=== PATIENT | female | born 1955 | race Caucasian/White ===

== ENCOUNTER 2021-08-27 11:05 | Inpatient (IN) ==
[2021-08-27] MEDS ORDERED: CLORAZEPATE 3.75 MG TABLET PO PRN (11:06)
[2021-08-27] MEDS ORDERED: GLUCAGON 1 MG VIAL IM PRN ×2 (11:06)
[2021-08-27] MEDS ORDERED: SODIUM CHLORIDE 0.9% 1,000 ML IV SCH ×2 (11:30→15:30)
[2021-08-27] MEDS ORDERED: MORPHINE 2 MG/1 ML SYRINGE IV PRN (13:06)
[2021-08-27] MEDS ORDERED: NITROGLYCERIN SL 0.4 MG TABLET SL PRN (13:06)
[2021-08-27 14:21] LABS: Basophils % 0.4 % (0.0-0.8); Eosinophils # 0.2 10*3/uL (0.0-0.87); Eosinophils % 2.1 % (0.00-10.9); Hematocrit 39.3 VOL% (35.7-47.0); Hemoglobin 12.5 GM/DL (12.0-16.0); Immature Granulocytes % 0.5 %; Immature Granulocytes Absolute 0.04 #; Lymphocytes # 1.9 10*3/uL (1.4-4.0); Lymphocytes % 24.8 % (21.3-54.2); Mean Corpuscular HGB Conc 31.8 GM/DL (32-36); Mean Corpuscular Volume 87.3 FL (87-102); Monocytes % 6.6 % (1.7-12.7); Neutrophils % 65.6 % (38.7-73.9); Platelet Count 277 T/CUMM (130-400); Red Cell Distribution Width 13.2 % (9.3-17.3); White Blood Count 7.5 T/CUMM (4-12)
[2021-08-27 14:42] LABS: Alanine Aminotransferase 17 U/L (13-56); Albumin 3.3 G/DL (3.4-5.0); Alkaline Phosphatase 91 U/L (45-117); Aspartate Amino Transferase 12 U/L (0-37); Bilirubin,Total < 0.39 MG/DL (0.20-1.00); Blood Urea Nitrogen 10 MG/DL (7-18); Calcium 9.1 MG/DL (8.5-10.1); Carbon Dioxide 28 MMOL/L (21-32); Estimated Glom Filtration Rate 54 ML/MIN; Glucose 350 MG/DL (74-106); Osmolality,Calculated 282.1 MOS/KG (273-304); Potassium 4.2 MMOL/L (3.5-5.1); Sodium 135 MMOL/L (136-145); Total Protein 7.1 G/DL (6.4-8.2)
[2021-08-27] MEDS ORDERED: DEXTROSE 50% 25 GM/50 ML SYRINGE IV PRN ×2 (14:43→14:49)
[2021-08-27] MEDS: INSULIN REGULAR 100 UNIT/ML SUBCUT SCH ×3 (14:49→20:49)
[2021-08-27] MEDS: CHLORHEXIDINE 4% SOLN 118 ML BOTTLE TOP SCH ×2 (15:22→20:49)
[2021-08-27 17:32] LABS: ABG Base Excess -1.4 MMOL/L (-2.5-2.5); ABG Oxygen Saturation 95.5 % (95-100); ABG PH 7.364 (7.35-7.45); ABG PO2 83.2 MM HG (80-95); ABG TCO2 25.3 MMOL/L (23-27); Allen Test Positive
[2021-08-27] MEDS: CHLORHEXIDINE 0.12% ORAL RINSE 60 ML BOTTLE SWISH/SPIT SCH (20:48)
[2021-08-28] MEDS ORDERED: PAPAVERINE 60 MG/2 ML VIAL ONE (04:16)
[2021-08-28] MEDS ORDERED: VANCOMYCIN 500 MG VIAL ONE (04:17)
[2021-08-28] MEDS ORDERED: VANCOMYCIN 1,000 MG VIAL ONE (04:17)
[2021-08-28] MEDS ORDERED: CEFUROXIME INJ 1,500 MG in SODIUM CHLORIDE 0.9% 100 ML IV ONE (05:00)
[2021-08-28] MEDS ORDERED: NITROGLYCERIN DRIP 50 MG/250 ML BOTTLE IV ONE (05:03)
[2021-08-28] MEDS ORDERED: SODIUM CHLORIDE 0.9% 500 ML IV ONE (05:03)
[2021-08-28] MEDS ORDERED: AMINOCAPROIC ACID 5,000 MG/20 ML VIAL ONE (05:03)
[2021-08-28] MEDS ORDERED: LACTATED RINGERS 1,000 ML IV ONE (05:03)
[2021-08-28] MEDS ORDERED: ETOMIDATE 40 MG/20 ML VIAL IV ONE (05:03)
[2021-08-28] MEDS ORDERED: VECURONIUM 10 MG VIAL IV ONE (05:03)
[2021-08-28] MEDS ORDERED: ePHEDrine 50 MG/ML VIAL ONE (05:03)
[2021-08-28] MEDS ORDERED: LIDOCAINE 2% 5 ML VIAL ONE ×2 (05:03→10:14)
[2021-08-28] MEDS ORDERED: SEVOFLURANE 1 UNIT/15 MINUTE INH ONE (05:03)
[2021-08-28] MEDS ORDERED: SODIUM CHLORIDE 0.9% 100 ML IV ONE ×3 (05:03→09:07)
[2021-08-28] MEDS ORDERED: SODIUM CHLORIDE 0.9% 1,000 ML IV ONE (05:03)
[2021-08-28] MEDS ORDERED: PHENYLEPHRINE 10 MG/1 ML VIAL IV ONE (05:04)
[2021-08-28] MEDS ORDERED: SUFentanil 250 MCG/5 ML AMP ONE ×4 (05:04→08:58)
[2021-08-28] MEDS ORDERED: MIDAZOLAM 10 MG/2 ML VIAL ONE ×4 (05:04)
[2021-08-28] MEDS ORDERED: CALCIUM CHLORIDE 1,000 MG/10 ML VIAL IV ONE (05:13)
[2021-08-28] MEDS ORDERED: ONDANSETRON 4 MG/2 ML VIAL IV ONE (05:30)
[2021-08-28] MEDS ORDERED: FAMOTIDINE 20 MG TABLET PO ONE (05:30)
[2021-08-28] MEDS ORDERED: DIAZEPAM 5 MG TABLET PO ONE (05:30)
[2021-08-28] MEDS ORDERED: MINERAL OIL/PETROLATUM OPH OINT 3.5 GM TUBE ONE ×2 (05:49→07:20)
[2021-08-28] MEDS ORDERED: SODIUM CHLORIDE 0.9% 1,000 ML IV SCH (06:00)
[2021-08-28] MEDS ORDERED: SODIUM BICARBONATE 50 MEQ/50 ML VIAL IV ONE ×2 (07:25→10:15)
[2021-08-28] MEDS ORDERED: CALCIUM CHLORIDE 1,000 MG/10 ML SYRINGE IV ONE (07:25)
[2021-08-28] MEDS ORDERED: NITROPRUSSIDE 50 MG/2 ML VIAL ONE (07:25)
[2021-08-28] MEDS ORDERED: POTASSIUM CHLORIDE RIDER 20 MEQ/100 ML PREMIX IV ONE (07:25)
[2021-08-28] MEDS ORDERED: PHENYLEPHRINE DRIP 40 MG/250 ML PREMIX IV ONE (07:25)
[2021-08-28 07:45] LABS: ABG Base Excess 2.6 MMOL/L (-2.5-2.5); ABG HCO3 26.8 MMOL/L (20-26); ABG Oxygen Saturation 99.8 % (95-100); ABG PCO2 37.5 MM HG (35-48); ABG PH 7.456 (7.35-7.45); ABG TCO2 23.7 MMOL/L (23-27); Glucose Heart Surgery 241 MG/DL (74-106); Hematocrit Heart Surgery 33.1 PERCENT (37-47); Hemoglobin Heart Surgery 10.7 G/DL (12.0-16.0); PCO2 Patient Temp Arterial 37.5 MMHG; PH Patient Temp Arterial 7.456; Patient Temperature 37 CELCIUS; Potassium Heart/CVR 4.1 MMOL/L (3.5-5.1); Sodium Heart/CVR 138 MMOL/L (135-145)
[2021-08-28 07:50] LABS: Bilirubin,Urine Negative (Negative); Blood, Urine Negative (Negative); Glucose,Urine (UA) >=500 mg/dL (Negative); Ketones,Urine Negative (Negative); Mucus,Urine Occasional /LPF (Occasional); Nitrite,Urine Negative (Negative); Protein,Urine Negative; RBC,Urine 1 /HPF (0-4); Squamous Epithelial Cell,Urine Occasional /HPF (0-10); Urine Appearance CLEAR (Clear); Urine Color Yellow (Yellow); Urine Urobilinogen < 2.0 EU/DL (0.2-1.0)
[2021-08-28 09:15] LABS: Hematocrit Heart Surgery 21.8 PERCENT (37-47); PCO2 Patient Temp Venous 35.1 MM HG; PH Patient Temp Venous 7.489; PO2 Patient Temp Venous 32.4 MM HG; Potassium Heart/CVR 4.5 MMOL/L (3.5-5.1); VBG Base Excess 3.5 MEQ/L (0-4); VBG HCO3 27.3 MEQ/L (24-28); VBG Oxygen Saturation 76.3 %; VBG PCO2 40.5 MMHG (41-51); VBG PH 7.444; VBG Total CO2 26.3 MMOL/L
[2021-08-28 09:45] LABS: Hematocrit Heart Surgery 25.7 PERCENT (37-47); Hemoglobin Heart Surgery 8.3 G/DL (12.0-16.0); PCO2 Patient Temp Venous 37.9 MM HG; PH Patient Temp Venous 7.507; PO2 Patient Temp Venous 34.3 MM HG; Potassium Heart/CVR 4.4 MMOL/L (3.5-5.1); VBG Base Excess 6.5 MEQ/L (0-4); VBG HCO3 29.9 MEQ/L (24-28); VBG Oxygen Saturation 69.4 %; VBG PCO2 37.9 MMHG (41-51); VBG PH 7.507; VBG PO2 34.3 MMHG (17-40)
[2021-08-28 10:05] LABS: ABG Base Excess 2.5 MMOL/L (-2.5-2.5); ABG HCO3 25.8 MMOL/L (20-26); ABG Oxygen Saturation 98.6 % (95-100); ABG PCO2 34.8 MM HG (35-48); ABG PH 7.488 (7.35-7.45); ABG PO2 258.5 MM HG (80-95); ABG TCO2 26.9 MMOL/L (23-27); Glucose Heart Surgery 349 MG/DL (74-106); Hemoglobin Heart Surgery 9.1 G/DL (12.0-16.0); Ionized Calcium Arterial 1.17 MMOL/L (1.21-1.46); PCO2 Patient Temp Arterial 34.8 MMHG; PH Patient Temp Arterial 7.488; PO2 Patient Temp Arterial 258.5 MM HG; Patient Temperature 37 CELCIUS; Potassium Heart/CVR 3.5 MMOL/L (3.5-5.1); Sodium Heart/CVR 134 MMOL/L (135-145)
[2021-08-28] MEDS ORDERED: methylPREDNISolone SOD SUC 1,000 MG/8 ML VIAL ONE (10:14)
[2021-08-28] MEDS ORDERED: ALBUMIN 25% 25 GM/100 ML VIAL IV ONE (10:14)
[2021-08-28] MEDS ORDERED: MAGNESIUM SULFATE 5 GM/10 ML VIAL IV ONE (10:14)
[2021-08-28] MEDS ORDERED: DEXTROSE 5% KCL 20 MEQ 20 MEQ/1,000 ML BAG IV ONE (10:15)
[2021-08-28] MEDS ORDERED: FUROSEMIDE 20 MG/2 ML VIAL ONE (10:15)
[2021-08-28] MEDS ORDERED: HEPARIN 10,000 UNIT/10 ML VIAL ONE (10:15)
[2021-08-28] MEDS ORDERED: PROTAMINE SULFATE 250 MG/25 ML VIAL IV ONE (10:15)
[2021-08-28] MEDS ORDERED: ONDANSETRON 4 MG/2 ML VIAL IV PRN (10:17)
[2021-08-28] MEDS ORDERED: INSULIN REGULAR 100 UNIT/ML IV ONE (10:17)
[2021-08-28] MEDS ORDERED: NITROPRUSSIDE 100 MG in DEXTROSE 5% 250 ML IV PRN (10:17)
[2021-08-28] MEDS ORDERED: ACETAMINOPHEN 650 MG SUPP RECTAL PRN (10:17)
[2021-08-28] MEDS ORDERED: PHENYLEPHRINE DRIP 40 MG/250 ML PREMIX IV PRN (10:17)
[2021-08-28] MEDS ORDERED: MIDAZOLAM 10 MG/2 ML VIAL IV PRN (10:17)
[2021-08-28] MEDS ORDERED: MAGNESIUM SULF RIDER 4 GM/100 ML PREMIX IV PRN (10:17)
[2021-08-28] MEDS ORDERED: CALCIUM CHLORIDE 1,000 MG/10 ML SYRINGE IV PRN (10:17)
[2021-08-28] MEDS ORDERED: VECURONIUM 10 MG VIAL IV PRN ×2 (10:17)
[2021-08-28] MEDS ORDERED: MIDAZOLAM 2 MG/2 ML VIAL IV PRN (10:17)
[2021-08-28] MEDS ORDERED: CHLORHEXIDINE 4% SOLN 118 ML BOTTLE TOP PRN (10:17)
[2021-08-28] MEDS ORDERED: MORPHINE 10 MG/1 ML VIAL IV PRN (10:17)
[2021-08-28] MEDS ORDERED: MAGNESIUM SULF RIDER 2 GM/50 ML PREMIX IV PRN (10:17)
[2021-08-28] MEDS ORDERED: POTASSIUM CHLORIDE RIDER 10 MEQ/100 ML PREMIX IV PRN (10:17)
[2021-08-28] MEDS ORDERED: INSULIN REGULAR 100 UNIT/ML IV PRN (10:17)
[2021-08-28] MEDS: CHLORHEXIDINE 4% SOLN 118 ML BOTTLE TOP SCH (10:21)
[2021-08-28] MEDS: INSULIN REGULAR 100 UNIT/ML SUBCUT SCH (10:22)
[2021-08-28] MEDS: CHLORHEXIDINE 0.12% ORAL RINSE 60 ML BOTTLE SWISH/SPIT SCH ×2 (10:22→20:54)
[2021-08-28] MEDS ORDERED: INSULIN REGULAR DRIP 100 ML IV SCH (10:30)
[2021-08-28] MEDS ORDERED: SODIUM CHLORIDE 0.45% 1,000 ML IV SCH ×2 (10:30)
[2021-08-28] MEDS ORDERED: NITROGLYCERIN DRIP 50 MG/250 ML BOTTLE IV PRN (10:31)
[2021-08-28] MEDS ORDERED: DEXTROSE 50% 25 GM/50 ML SYRINGE IV PRN ×2 (10:39)
[2021-08-28] MEDS ORDERED: HEPARIN/NACL 0.9% 2 UNITS/ML 1,000 UNIT/500 ML BAG IV ONE (11:03)
[2021-08-28 11:05] LABS: ABG Base Excess 3.3 MMOL/L (-2.5-2.5); ABG HCO3 27.4 MMOL/L (20-26); ABG Oxygen Saturation 99.6 % (95-100); ABG PCO2 39.8 MM HG (35-48); ABG PH 7.447 (7.35-7.45); ABG TCO2 24.7 MMOL/L (23-27); Glucose Heart Surgery 382 MG/DL (74-106); Hematocrit Heart Surgery 32.9 PERCENT (37-47); Hemoglobin Heart Surgery 10.7 G/DL (12.0-16.0); Potassium Heart/CVR 4.7 MMOL/L (3.5-5.1)
[2021-08-28 11:16] LABS: Basophils % 0.2 % (0.0-0.8); Eosinophils # 0.1 10*3/uL (0.0-0.87); Eosinophils % 0.5 % (0.00-10.9); Hematocrit 31.6 VOL% (35.7-47.0); Immature Granulocytes % 1.3 %; Immature Granulocytes Absolute 0.16 #; Lymphocytes # 1.7 10*3/uL (1.4-4.0); Lymphocytes % 13.7 % (21.3-54.2); Mean Corpuscular HGB Conc 33.2 GM/DL (32-36); Mean Corpuscular Volume 84.9 FL (87-102); Mean Platelet Volume 10.5 FL (9.6-12.0); Monocytes % 4.3 % (1.7-12.7); Platelet Count 265 T/CUMM (130-400); Red Blood Count 3.72 MC/CUMM (3.8-5.5); Red Cell Distribution Width 13.2 % (9.3-17.3)
[2021-08-28 11:17] LABS: Hemoglobin 10.5 GM/DL (12.0-16.0); White Blood Count 12.2 T/CUMM (4-12)
[2021-08-28 11:21] LABS: INR 1.1; PT Patient Result 12.1 SECS (10.5-12.0); Partial Thromboplastin Time 26.8 SECS (23.8-32.1)
[2021-08-28 11:37] LABS: CKMB % 7.6 %
[2021-08-28 11:39] LABS: High Sensitive Troponin I* 3002.4 ng/L (0-54)
[2021-08-28 11:51] LABS: Albumin 3.2 G/DL (3.4-5.0); Osmolality,Calculated 295.3 MOS/KG (273-304); Potassium 4.8 MMOL/L (3.5-5.1); Total Protein 6.2 G/DL (6.4-8.2)
[2021-08-28] MEDS: ALBUMIN 5% 12.5 GM/250 ML VIAL IV PRN ×3 (12:06→22:08)
[2021-08-28 12:23] LABS: ABG Base Excess 1.8 MMOL/L (-2.5-2.5); ABG Oxygen Saturation 99.2 % (95-100); ABG PCO2 40.1 MM HG (35-48); ABG PH 7.425 (7.35-7.45); ABG TCO2 23.7 MMOL/L (23-27); Glucose Heart Surgery 421 MG/DL (74-106); Hematocrit Heart Surgery 31.8 PERCENT (37-47); Hemoglobin Heart Surgery 10.3 G/DL (12.0-16.0); Potassium Heart/CVR 3.4 MMOL/L (3.5-5.1)
[2021-08-28] MEDS: POTASSIUM CHLORIDE RIDER 20 MEQ/100 ML PREMIX IV PRN ×5 (12:27→19:40)
[2021-08-28 12:33] LABS: VBG Base Excess 1.9 MEQ/L (0-4); VBG HCO3 25.9 MEQ/L (24-28); VBG Oxygen Saturation 89.6 %; VBG PCO2 38.1 MMHG (41-51); VBG PH 7.45; VBG PO2 56.8 MMHG (17-40); VBG Total CO2 27.1 MMOL/L
[2021-08-28 14:34] LABS: ABG Base Excess 0.9 MMOL/L (-2.5-2.5); ABG HCO3 25.2 MMOL/L (20-26); ABG Oxygen Saturation 98.9 % (95-100); ABG PCO2 41.1 MM HG (35-48); ABG PH 7.404 (7.35-7.45); ABG TCO2 23.7 MMOL/L (23-27); Glucose Heart Surgery 335 MG/DL (74-106); Hematocrit Heart Surgery 27.3 PERCENT (37-47); Hemoglobin Heart Surgery 8.8 G/DL (12.0-16.0); Potassium Heart/CVR 3.3 MMOL/L (3.5-5.1)
[2021-08-28 17:09] LABS: ABG Base Excess -0.6 MMOL/L (-2.5-2.5); ABG Oxygen Saturation 98.5 % (95-100); ABG PCO2 45.9 MM HG (35-48); ABG TCO2 22.6 MMOL/L (23-27); Glucose Heart Surgery 229 MG/DL (74-106); Hematocrit Heart Surgery 36.6 PERCENT (37-47); Hemoglobin Heart Surgery 11.9 G/DL (12.0-16.0); Potassium Heart/CVR 3.9 MMOL/L (3.5-5.1)
[2021-08-28] MEDS: CEFUROXIME INJ 1,500 MG in SODIUM CHLORIDE 0.9% 100 ML IV SCH (17:31)
[2021-08-28] MEDS ORDERED: FUROSEMIDE 40 MG/4 ML VIAL IV PRN (18:43)
[2021-08-28] MEDS: LACTATED RINGERS 250 ML IV PRN ×3 (19:00→22:40)
[2021-08-28 19:20] LABS: ABG Base Excess 0.2 MMOL/L (-2.5-2.5); ABG HCO3 24.6 MMOL/L (20-26); ABG PCO2 47.5 MM HG (35-48); ABG PH 7.351 (7.35-7.45); ABG TCO2 23.5 MMOL/L (23-27); Glucose Heart Surgery 186 MG/DL (74-106); Hematocrit Heart Surgery 36.3 PERCENT (37-47); Hemoglobin Heart Surgery 11.8 G/DL (12.0-16.0); Potassium Heart/CVR 3.7 MMOL/L (3.5-5.1)
[2021-08-28 20:08] LABS: CKMB % 3.7 %; High Sensitive Troponin I* 2211.8 ng/L (0-54)
[2021-08-28 22:18] LABS: ABG Base Excess -0.2 MMOL/L (-2.5-2.5); ABG HCO3 24.2 MMOL/L (20-26); ABG Oxygen Saturation 98.2 % (95-100); ABG PCO2 48.2 MM HG (35-48); ABG PH 7.341 (7.35-7.45); ABG TCO2 23.3 MMOL/L (23-27); Glucose Heart Surgery 152 MG/DL (74-106); Hematocrit Heart Surgery 36.1 PERCENT (37-47); Hemoglobin Heart Surgery 11.7 G/DL (12.0-16.0); Potassium Heart/CVR 4.1 MMOL/L (3.5-5.1)
[2021-08-29 00:12] LABS: ABG Base Excess 0.5 MMOL/L (-2.5-2.5); ABG HCO3 26.7 MMOL/L (20-26); ABG Oxygen Saturation 97.2 % (95-100); ABG PCO2 49.5 MM HG (35-48); ABG PH 7.349 (7.35-7.45); ABG PO2 101.5 MM HG (80-95); ABG TCO2 28.2 MMOL/L (23-27); Glucose Heart Surgery 126 MG/DL (74-106); Hemoglobin Heart Surgery 11.7 G/DL (12.0-16.0); Potassium Heart/CVR 4.1 MMOL/L (3.5-5.1)
[2021-08-29] MEDS: ALBUMIN 5% 12.5 GM/250 ML VIAL IV PRN (00:40)
[2021-08-29] MEDS: POTASSIUM CHLORIDE RIDER 20 MEQ/100 ML PREMIX IV PRN ×2 (01:37→04:11)
[2021-08-29 02:07] LABS: ABG Base Excess 2.1 MMOL/L (-2.5-2.5); ABG HCO3 26.3 MMOL/L (20-26); ABG Oxygen Saturation 98.5 % (95-100); ABG PCO2 44.8 MM HG (35-48); ABG PH 7.395 (7.35-7.45); ABG TCO2 24.4 MMOL/L (23-27); Glucose Heart Surgery 149 MG/DL (74-106); Hematocrit Heart Surgery 36.1 PERCENT (37-47); Hemoglobin Heart Surgery 11.7 G/DL (12.0-16.0); Potassium Heart/CVR 5.1 MMOL/L (3.5-5.1)
[2021-08-29] MEDS: MORPHINE 2 MG/1 ML SYRINGE IV PRN ×2 (02:20→06:20)
[2021-08-29 03:15] LABS: ABG Base Excess 2.5 MMOL/L (-2.5-2.5); ABG HCO3 26.7 MMOL/L (20-26); ABG Oxygen Saturation 98.1 % (95-100); ABG PH 7.356 (7.35-7.45); Glucose Heart Surgery 159 MG/DL (74-106); Hematocrit Heart Surgery 36.2 PERCENT (37-47); Hemoglobin Heart Surgery 11.7 G/DL (12.0-16.0); Potassium Heart/CVR 4.4 MMOL/L (3.5-5.1)
[2021-08-29 03:26] LABS: Basophils % 0.1 % (0.0-0.8); Hematocrit 35.6 VOL% (35.7-47.0); Hemoglobin 11.7 GM/DL (12.0-16.0); Immature Granulocytes % 0.8 %; Immature Granulocytes Absolute 0.12 #; Lymphocytes # 1.1 10*3/uL (1.4-4.0); Lymphocytes % 6.7 % (21.3-54.2); Mean Corpuscular HGB Conc 32.9 GM/DL (32-36); Mean Corpuscular Volume 86.4 FL (87-102); Mean Platelet Volume 10.6 FL (9.6-12.0); Monocytes % 4.2 % (1.7-12.7); Neutrophils % 88.2 % (38.7-73.9); Platelet Count 204 T/CUMM (130-400); Red Blood Count 4.12 MC/CUMM (3.8-5.5); Red Cell Distribution Width 14.1 % (9.3-17.3); White Blood Count 15.9 T/CUMM (4-12)
[2021-08-29 03:45] LABS: Albumin 4.1 G/DL (3.4-5.0); Bilirubin,Direct 0.12 MG/DL (0.0-0.20); Bilirubin,Total 0.4 MG/DL (0.20-1.00); Calcium 8.6 MG/DL (8.5-10.1); Potassium 4.5 MMOL/L (3.5-5.1); Total Protein 6.6 G/DL (6.4-8.2)
[2021-08-29 03:47] LABS: CKMB % 2.6 %; High Sensitive Troponin I* 1747.7 ng/L (0-54)
[2021-08-29 04:07] LABS: ABG Oxygen Saturation 98.1 % (95-100); ABG PH 7.373 (7.35-7.45); ABG PO2 115.6 MM HG (80-95); ABG TCO2 30.6 MMOL/L (23-27); Glucose Heart Surgery 149 MG/DL (74-106); Potassium Heart/CVR 4.3 MMOL/L (3.5-5.1)
[2021-08-29] MEDS: CEFUROXIME INJ 1,500 MG in SODIUM CHLORIDE 0.9% 100 ML IV SCH ×2 (05:48→18:05)
[2021-08-29 06:32] LABS: ABG Base Excess 3.1 MMOL/L (-2.5-2.5); ABG HCO3 28.7 MMOL/L (20-26); ABG Oxygen Saturation 96.7 % (95-100); ABG PCO2 48.2 MM HG (35-48); ABG PH 7.393 (7.35-7.45); ABG PO2 91.8 MM HG (80-95); ABG TCO2 30.2 MMOL/L (23-27); Glucose Heart Surgery 139 MG/DL (74-106); Hemoglobin Heart Surgery 12.1 G/DL (12.0-16.0); Potassium Heart/CVR 4.4 MMOL/L (3.5-5.1)
[2021-08-29] MEDS: ASPIRIN EC 325 MG TABLET PO SCH (08:46)
[2021-08-29] MEDS: CITALOPRAM 20 MG TABLET PO SCH (08:46)
[2021-08-29] MEDS: oxyCODONE/ACETAMINOPHEN 5-325 MG TABLET PO PRN ×3 (08:47→22:08)
[2021-08-29] MEDS: OMEPRAZOLE ODT 20 MG TABLET PO SCH ×2 (08:47→22:05)
[2021-08-29] MEDS: CHLORHEXIDINE 0.12% ORAL RINSE 60 ML BOTTLE SWISH/SPIT SCH ×3 (08:48→22:06)
[2021-08-29] MEDS ORDERED: GLUCAGON 1 MG VIAL IM PRN (08:52)
[2021-08-29] MEDS ORDERED: MAGNESIUM HYDROXIDE SUSP 30 ML UDCUP PO PRN (08:52)
[2021-08-29] MEDS ORDERED: ACETAMINOPHEN 325 MG TABLET PO PRN (08:52)
[2021-08-29] MEDS ORDERED: ONDANSETRON 4 MG/2 ML VIAL IV PRN (08:52)
[2021-08-29] MEDS ORDERED: DEXTROSE 50% 25 GM/50 ML SYRINGE IV PRN (08:52)
[2021-08-29] MEDS ORDERED: MAGNESIUM SULF RIDER 2 GM/50 ML PREMIX IV PRN (08:52)
[2021-08-29] MEDS ORDERED: ALUMINUM/MAGNES/SIMETH MAX STR 30 ML UDCUP PO PRN (08:52)
[2021-08-29] MEDS ORDERED: MAGNESIUM SULF RIDER 4 GM/100 ML PREMIX IV PRN (08:52)
[2021-08-29] MEDS: FERROUS SULFATE 325 MG TABLET PO SCH (08:59)
[2021-08-29] MEDS: SODIUM CHLOR 0.45% KCL 20 MEQ 20 MEQ/1,000 ML BAG IV SCH (09:06)
[2021-08-29 11:35] LABS: High Sensitive Troponin I* 1463.7 ng/L (0-54)
[2021-08-29] MEDS: INSULIN REGULAR 100 UNIT/ML SUBCUT SCH ×2 (12:36→16:25)
[2021-08-29] MEDS: DOCUSATE SODIUM 100 MG CAPSULE PO SCH (12:37)
[2021-08-29] MEDS: ZALEPLON 5 MG CAPSULE PO PRN (22:05)
[2021-08-29] MEDS: GABAPENTIN 600 MG TABLET PO SCH (22:06)
[2021-08-30 04:30] LABS: Basophils % 0.2 % (0.0-0.8); Eosinophils % 0.1 % (0.00-10.9); Hematocrit 35.2 VOL% (35.7-47.0); Hemoglobin 11.1 GM/DL (12.0-16.0); Immature Granulocytes % 0.9 %; Immature Granulocytes Absolute 0.13 #; Lymphocytes # 2.4 10*3/uL (1.4-4.0); Lymphocytes % 16.5 % (21.3-54.2); Mean Corpuscular HGB Conc 31.5 GM/DL (32-36); Mean Corpuscular Volume 89.3 FL (87-102); Mean Platelet Volume 10.2 FL (9.6-12.0); Monocytes % 8.3 % (1.7-12.7); Platelet Count 203 T/CUMM (130-400); Red Blood Count 3.94 MC/CUMM (3.8-5.5); Red Cell Distribution Width 14.2 % (9.3-17.3); White Blood Count 14.3 T/CUMM (4-12)
[2021-08-30] MEDS: oxyCODONE/ACETAMINOPHEN 5-325 MG TABLET PO PRN ×4 (04:37→22:09)
[2021-08-30 04:59] LABS: Alanine Aminotransferase 19 U/L (13-56); Albumin 3.4 G/DL (3.4-5.0); Aspartate Amino Transferase 20 U/L (0-37); Bilirubin,Direct 0.14 MG/DL (0.0-0.20); Bilirubin,Indirect 0.3 MG/DL (0.0-1.0); Bilirubin,Total 0.4 MG/DL (0.20-1.00); Calcium 8.5 MG/DL (8.5-10.1); Osmolality,Calculated 279.7 MOS/KG (273-304); Potassium 4.1 MMOL/L (3.5-5.1); Total Protein 6.1 G/DL (6.4-8.2); Total Protein 6.2 G/DL (6.4-8.2)
[2021-08-30 05:00] LABS: Alkaline Phosphatase 62 U/L (45-117)
[2021-08-30] MEDS: INSULIN REGULAR 100 UNIT/ML SUBCUT SCH ×5 (05:05→22:08)
[2021-08-30] MEDS ORDERED: FUROSEMIDE 40 MG/4 ML VIAL IV ONE (06:00)
[2021-08-30] MEDS: OMEPRAZOLE ODT 20 MG TABLET PO SCH ×2 (09:00→22:10)
[2021-08-30] MEDS: DOCUSATE SODIUM 100 MG CAPSULE PO SCH (09:05)
[2021-08-30] MEDS: CITALOPRAM 20 MG TABLET PO SCH (09:05)
[2021-08-30] MEDS: ASPIRIN EC 325 MG TABLET PO SCH (09:05)
[2021-08-30] MEDS: FERROUS SULFATE 325 MG TABLET PO SCH (09:05)
[2021-08-30] MEDS: GABAPENTIN 600 MG TABLET PO SCH ×3 (09:05→22:09)
[2021-08-30] MEDS: SODIUM CHLOR 0.45% KCL 20 MEQ 20 MEQ/1,000 ML BAG IV SCH (09:22)
[2021-08-30] MEDS: glipiZIDE 5 MG TABLET PO SCH ×2 (10:47→16:19)
[2021-08-30] MEDS: fentaNYL 25 MCG/HR PATCH TRANSDERM SCH (10:47)
[2021-08-30] MEDS: metFORMIN 500 MG TABLET PO SCH ×2 (10:47→16:19)
[2021-08-30] MEDS: CHLORHEXIDINE 0.12% ORAL RINSE 60 ML BOTTLE SWISH/SPIT SCH ×2 (10:48→22:10)
[2021-08-30] MEDS: ZALEPLON 5 MG CAPSULE PO PRN (22:09)
[2021-08-31] MEDS: oxyCODONE/ACETAMINOPHEN 5-325 MG TABLET PO PRN ×4 (03:16→22:15)
[2021-08-31 05:49] LABS: Basophils % 0.2 % (0.0-0.8); Eosinophils # 0.1 10*3/uL (0.0-0.87); Eosinophils % 0.6 % (0.00-10.9); Hemoglobin 11.7 GM/DL (12.0-16.0); Immature Granulocytes Absolute 0.16 #; Lymphocytes # 2.8 10*3/uL (1.4-4.0); Lymphocytes % 18.1 % (21.3-54.2); Mean Corpuscular HGB Conc 31.6 GM/DL (32-36); Mean Corpuscular Volume 88.5 FL (87-102); Mean Platelet Volume 11.1 FL (9.6-12.0); Monocytes % 8.7 % (1.7-12.7); Neutrophils % 71.4 % (38.7-73.9); Platelet Count 252 T/CUMM (130-400); Red Blood Count 4.18 MC/CUMM (3.8-5.5); Red Cell Distribution Width 13.7 % (9.3-17.3); White Blood Count 15.7 T/CUMM (4-12)
[2021-08-31 06:09] LABS: Alanine Aminotransferase 18 U/L (13-56); Albumin 3.2 G/DL (3.4-5.0); Alkaline Phosphatase 82 U/L (45-117); Aspartate Amino Transferase 24 U/L (0-37); Bilirubin,Indirect 0.8 MG/DL (0.0-1.0); Total Protein 6.5 G/DL (6.4-8.2)
[2021-08-31 06:10] LABS: Albumin 3.2 G/DL (3.4-5.0); Bilirubin,Direct 0.13 MG/DL (0.0-0.20); Bilirubin,Total 0.8 MG/DL (0.20-1.00); Calcium 8.5 MG/DL (8.5-10.1); Osmolality,Calculated 280.5 MOS/KG (273-304); Potassium 3.4 MMOL/L (3.5-5.1)
[2021-08-31] MEDS: POTASSIUM CHLORIDE 20 MEQ TABLET PO PRN ×3 (08:28→10:27)
[2021-08-31] MEDS: INSULIN REGULAR 100 UNIT/ML SUBCUT SCH ×4 (08:37→23:06)
[2021-08-31] MEDS: DOCUSATE SODIUM 100 MG CAPSULE PO SCH ×2 (09:34→22:15)
[2021-08-31] MEDS: GABAPENTIN 600 MG TABLET PO SCH ×3 (09:34→22:15)
[2021-08-31] MEDS: CITALOPRAM 20 MG TABLET PO SCH (09:34)
[2021-08-31] MEDS: metFORMIN 500 MG TABLET PO SCH ×2 (09:35→16:56)
[2021-08-31] MEDS: ASPIRIN EC 325 MG TABLET PO SCH (09:35)
[2021-08-31] MEDS: FERROUS SULFATE 325 MG TABLET PO SCH (09:35)
[2021-08-31] MEDS: glipiZIDE 5 MG TABLET PO SCH ×2 (09:35→16:55)
[2021-08-31] MEDS: OMEPRAZOLE ODT 20 MG TABLET PO SCH ×2 (09:36→22:15)
[2021-08-31] MEDS: CHLORHEXIDINE 0.12% ORAL RINSE 60 ML BOTTLE SWISH/SPIT SCH ×2 (09:43→22:14)
[2021-08-31] MEDS: POLYETHYLENE GLYCOL POWDER 17 GM PACK PO SCH (09:43)
[2021-08-31] MEDS: ZALEPLON 5 MG CAPSULE PO PRN (22:15)
[2021-09-01 03:57] LABS: Basophils # 0.1 10*3/uL (0.0-0.2); Basophils % 0.4 % (0.0-0.8); Eosinophils # 0.3 10*3/uL (0.0-0.87); Eosinophils % 2.6 % (0.00-10.9); Hematocrit 34.7 VOL% (35.7-47.0); Immature Granulocytes % 0.7 %; Immature Granulocytes Absolute 0.08 #; Lymphocytes # 2.2 10*3/uL (1.4-4.0); Mean Corpuscular HGB Conc 31.7 GM/DL (32-36); Mean Corpuscular Volume 88.7 FL (87-102); Mean Platelet Volume 10.2 FL (9.6-12.0); Monocytes % 7.2 % (1.7-12.7); Neutrophils % 70.1 % (38.7-73.9); Platelet Count 237 T/CUMM (130-400); Red Blood Count 3.91 MC/CUMM (3.8-5.5); Red Cell Distribution Width 13.7 % (9.3-17.3); White Blood Count 11.8 T/CUMM (4-12)
[2021-09-01 04:12] LABS: Calcium 8.5 MG/DL (8.5-10.1); Osmolality,Calculated 285.4 MOS/KG (273-304); Potassium 4.3 MMOL/L (3.5-5.1)
[2021-09-01] MEDS: glipiZIDE 5 MG TABLET PO SCH ×2 (08:25→16:40)
[2021-09-01] MEDS: metFORMIN 500 MG TABLET PO SCH (08:25)
[2021-09-01] MEDS: GABAPENTIN 600 MG TABLET PO SCH ×3 (08:25→21:51)
[2021-09-01] MEDS: FERROUS SULFATE 325 MG TABLET PO SCH (08:26)
[2021-09-01] MEDS: DOCUSATE SODIUM 100 MG CAPSULE PO SCH ×2 (08:26→21:51)
[2021-09-01] MEDS: CITALOPRAM 20 MG TABLET PO SCH (08:26)
[2021-09-01] MEDS: oxyCODONE/ACETAMINOPHEN 5-325 MG TABLET PO PRN ×3 (08:26→22:01)
[2021-09-01] MEDS: INSULIN REGULAR 100 UNIT/ML SUBCUT SCH ×4 (08:27→22:26)
[2021-09-01] MEDS: CHLORHEXIDINE 0.12% ORAL RINSE 60 ML BOTTLE SWISH/SPIT SCH ×2 (08:31→22:06)
[2021-09-01] MEDS: OMEPRAZOLE ODT 20 MG TABLET PO SCH ×2 (09:18→22:06)
[2021-09-01] MEDS: POLYETHYLENE GLYCOL POWDER 17 GM PACK PO SCH (09:18)
[2021-09-01] MEDS: ASPIRIN EC 325 MG TABLET PO SCH (09:37)
[2021-09-01] MEDS: ASPIRIN EC 81 MG TABLET PO SCH (10:20)
[2021-09-01] MEDS: metFORMIN 850 MG TABLET PO SCH (16:40)
[2021-09-01] MEDS: ZALEPLON 5 MG CAPSULE PO PRN (21:51)
[2021-09-02] MEDS: oxyCODONE/ACETAMINOPHEN 5-325 MG TABLET PO PRN ×2 (04:36→10:17)
[2021-09-02 05:53] LABS: Basophils % 0.4 % (0.0-0.8); Eosinophils # 0.4 10*3/uL (0.0-0.87); Eosinophils % 4.2 % (0.00-10.9); Hematocrit 33.9 VOL% (35.7-47.0); Hemoglobin 10.7 GM/DL (12.0-16.0); Immature Granulocytes % 0.7 %; Immature Granulocytes Absolute 0.07 #; Lymphocytes # 1.9 10*3/uL (1.4-4.0); Lymphocytes % 19.2 % (21.3-54.2); Mean Corpuscular HGB Conc 31.6 GM/DL (32-36); Mean Corpuscular Volume 89.9 FL (87-102); Mean Platelet Volume 10.9 FL (9.6-12.0); Monocytes % 8.6 % (1.7-12.7); Neutrophils % 66.9 % (38.7-73.9); Platelet Count 276 T/CUMM (130-400); Red Blood Count 3.77 MC/CUMM (3.8-5.5); Red Cell Distribution Width 13.3 % (9.3-17.3); White Blood Count 9.9 T/CUMM (4-12)
[2021-09-02 06:21] LABS: Alanine Aminotransferase 21 U/L (13-56); Albumin 2.7 G/DL (3.4-5.0); Alkaline Phosphatase 89 U/L (45-117); Aspartate Amino Transferase 24 U/L (0-37); Bilirubin,Indirect 0.5 MG/DL (0.0-1.0); Blood Urea Nitrogen 13 MG/DL (7-18); Calcium 9.1 MG/DL (8.5-10.1); Carbon Dioxide 30 MMOL/L (21-32); Estimated Glom Filtration Rate 92 ML/MIN; Glucose 183 MG/DL (74-106); Osmolality,Calculated 281.5 MOS/KG (273-304); Potassium 4.1 MMOL/L (3.5-5.1); Sodium 139 MMOL/L (136-145); Total Protein 6.3 G/DL (6.4-8.2)
[2021-09-02 08:34] VITALS: BP 115/47
[2021-09-02] MEDS: GABAPENTIN 600 MG TABLET PO SCH (08:43)
[2021-09-02] MEDS: DOCUSATE SODIUM 100 MG CAPSULE PO SCH (08:43)
[2021-09-02] MEDS: CITALOPRAM 20 MG TABLET PO SCH (08:43)
[2021-09-02] MEDS: FERROUS SULFATE 325 MG TABLET PO SCH (08:44)
[2021-09-02] MEDS: OMEPRAZOLE ODT 20 MG TABLET PO SCH (08:44)
[2021-09-02] MEDS: ASPIRIN EC 81 MG TABLET PO SCH (08:44)
[2021-09-02] MEDS: glipiZIDE 5 MG TABLET PO SCH (08:44)
[2021-09-02] MEDS: metFORMIN 850 MG TABLET PO SCH (08:44)
[2021-09-02] MEDS: INSULIN REGULAR 100 UNIT/ML SUBCUT SCH ×2 (08:45→13:02)
[2021-09-02] MEDS: POLYETHYLENE GLYCOL POWDER 17 GM PACK PO SCH (08:46)
[2021-09-02] MEDS: fentaNYL 25 MCG/HR PATCH TRANSDERM SCH (08:47)
[2021-09-02] MEDS: CHLORHEXIDINE 0.12% ORAL RINSE 60 ML BOTTLE SWISH/SPIT SCH (08:47)
== END 2021-09-02 13:12 | disposition home health service (06) | DRG 236 ==
LOC: N.TELES 13:16 → N.CVR 08-28 10:33 → N.ICU 08-29 08:19 → N.TELES 08-29 17:54